=== PATIENT | female | born 1990 | race Two or more races ===

== ENCOUNTER 2018-06-22 21:55 | Emergency (ER) | payer MEDICAID ==
[2018-06-22 23:27] LABS: ABSOLUTE EOSINOPHILS # (AUTO) 0.1 10^3/uL (0.0-0.6); ABSOLUTE LYMPHOCYTES (AUTO) 2.3 10^3/uL (0.5-4.7); ABSOLUTE MONOCYTES (AUTO) 0.6 10^3/uL (0.1-1.4); ABSOLUTE NEUT (AUTO) 7.6 10^3/uL (1.7-8.2); BASOPHILS % (AUTO) 0.3 % (0-2); EOSINOPHILS % (AUTO) 0.6 % (0-6); HEMATOCRIT 32.7 % (36.0-47.0); HEMOGLOBIN 11.3 g/dL (12.0-15.5); LYMPHOCYTES % (AUTO) 21.3 % (13-45); MEAN CORPUSCULAR HEMOGLOBIN 30.4 pg (27.0-33.4); MEAN CORPUSCULAR HGB CONC 34.7 g/dL (32.0-36.0); MEAN CORPUSCULAR VOLUME 88 fl (80-97); MONOCYTES % (AUTO) 6.1 % (3-13); PLATELET COUNT 216 10^3/uL (150-450); RED BLOOD COUNT 3.73 10^6/uL (3.72-5.28); RED CELL DISTRIBUTION WIDTH 15.3 % (11.5-14.0); SEGMENTED NEUTROPHILS % (AUTO) 71.7 % (42-78); TOTAL CELLS COUNTED % (AUTO) 100 %; WHITE BLOOD COUNT 10.6 10^3/uL (4.0-10.5)
[2018-06-22 23:34] LABS: APPEARANCE,URINE SLIGHTLY-CLOUDY; BILIRUBIN,URINE NEGATIVE (NEGATIVE); COLOR,URINE STRAW; GLUCOSE, URINE NEGATIVE (NEGATIVE); KETONES,URINE NEGATIVE (NEGATIVE); LEUKOCYTE ESTERASE,URINE TRACE (NEGATIVE); NITRITE,URINE NEGATIVE (NEGATIVE); PROTEIN,URINE NEGATIVE (NEGATIVE); URINE SPECIFIC GRAVITY 1.005; UROBILINOGEN,URINE NEGATIVE mg/dL (<2.0)
[2018-06-22 23:44] LABS: ALANINE AMINOTRANSFERASE 16 U/L (9-52); ALBUMIN 3.4 g/dL (3.5-5.0); ALKALINE PHOSPHATASE 56 U/L (38-126); ANION GAP 10 (5-19); ASPARTATE AMINO TRANSFERASE 17 U/L (14-36); BILIRUBIN,TOTAL 0.2 mg/dL (0.2-1.3); BLOOD UREA NITROGEN 5 mg/dL (7-20); CALCIUM 9.2 mg/dL (8.4-10.2); CARBON DIOXIDE 24 mmol/L (22-30); CHLORIDE 104 mmol/L (98-107); GLUCOSE 80 mg/dL (75-110); POTASSIUM 4.1 mmol/L (3.6-5.0); SODIUM 138.3 mmol/L (137-145); TOTAL PROTEIN 6.4 g/dL (6.3-8.2)
--- NOTE | 2018-06-23 00:49 | RADIOLOGY REPORT (SQ) ---
PROCEDURE: XR CHEST 1 VIEW HISTORY: sob COMPARISON: None TECHNIQUE: The study was done on 06/23/2018 at 12:34 AM Single projection of the chest was done. FINDINGS: The lung doty are well inflated . There are no discrete airspace infiltrates, pneumothoraces or pleural effusions. The pulmonary vascularity is normal. The cardiomediastinal silhouette is unremarkable for patient's age and sex. IMPRESSION: There is no acute pleural-parenchymal process seen in the imaged lung doty. Location of Interpretation: Teleradiology
--- NOTE | 2018-06-23 01:33 | ER Document Report ---
ED General - General Chief Complaint: Weakness Stated Complaint: GENERALIZED WEAKNESS Time Seen by Provider: 06/22/18 22:29 Notes: Patient is a 28-year-old female currently 21 weeks who presents with multiple complaints. She states for the past several days she has felt fatigued , intermittently lightheaded, states she feels that she could possibly pass out. She notes that she intimately feels like she is unable to catch her breath but currently denies that symptom. She denies any shortness of breath. She states sometimes her lips feel numb or tingly. Denies headache, neck pain, focal weakness or numbness. No loss of consciousness. No history of DVT or pulmonary embolus. No pleuritic pain. No history of coronary artery disease. She has not seen her ROLL TUBE SETTER regarding these concerns. TRAVEL OUTSIDE OF THE [place] IN LAST 30 DAYS: No Past Medical History - General Information source: Patient - Social History Smoking Status: Never Smoker Frequency of alcohol use: None Drug Abuse: None Lives with: Spouse/Significant other Family History: Reviewed & Not Pertinent Patient has suicidal ideation: No Patient has homicidal ideation: No Renal/ Medical History: Denies: Hx Peritoneal Dialysis Review of Systems - Review of Systems Notes: Constitutional: Negative for fever. HENT: Negative for sore throat. Eyes: Negative for visual changes. Cardiovascular: Negative for chest pain. Positive for lightheadedness Respiratory: Positive for intermittent shortness of breath Gastrointestinal: Negative for abdominal pain, vomiting or diarrhea. Genitourinary: Negative for dysuria. Musculoskeletal: Negative for back pain. Skin: Negative for rash. Neurological: Negative for headaches, weakness or numbness. 10 point ROS negative except as marked above and in HPI. Physical Exam - Vital signs Vitals: Temp Pulse Resp BP Pulse Ox 99.1 F 78 16 110/60 100 06/22/18 22:00 06/22/18 22:00 06/22/18 22:00 06/22/18 22:00 06/22/18 22:00 Interpretation: Normal Notes: PHYSICAL EXAMINATION: GENERAL: Well-appearing, well-nourished and in no acute distress. HEAD: Atraumatic, normocephalic. EYES: Pupils equal round and reactive to light, extraocular movements intact, sclera anicteric, conjunctiva are normal. ENT: nares patent, oropharynx clear without exudates. Moist mucous membranes. NECK: Normal range of motion, supple without lymphadenopathy LUNGS: Breath sounds clear to auscultation bilaterally and equal. No wheezes rales or rhonchi. HEART: Regular rate and rhythm without murmurs ABDOMEN: Soft, gravid uterus, nontender, normoactive bowel sounds. No guarding , no rebound. No masses appreciated. EXTREMITIES: Normal range of motion, no pitting or edema. No cyanosis. NEUROLOGICAL: No focal neurological deficits. Moves all extremities spontaneously and on command. PSYCH: Normal mood, normal affect. SKIN: Warm, Dry, normal turgor, no rashes or lesions noted. Course - Re-evaluation Re-evalutation: 06/23/18 01:31 Patient presents with multiple vague complaints that did not appear to be concerning for any acute life-threatening pathology. Vitals are within normal limits at triage and at time of discharge. Physical examination is unremarkable. Patient has tolerated oral intake without difficulty. Patient was not noted to be in distress at any point during their ER visit. At this time, based on the reassuring evaluation, I do not suspect an acute IA, pulmonary embolus, aortic dissection, acute intra-abdominal pathology, stroke, or sepsis. Active movement on exam. Do not suspect related pathology. Will discharge with return precautions and follow-up recommendations. Verbal discharge instructions given a the bedside and opportunity for questions given. Medication warnings reviewed. Patient is in agreement with this plan and has verbalized understanding of return precautions and the need for primary care follow-up in the next 24-72 hours. - Vital Signs Vital signs: Temp Pulse Resp BP Pulse Ox 98.2 F 73 20 107/67 100 06/23/18 01:50 06/23/18 01:50 06/23/18 01:50 06/23/18 01:50 06/23/18 01:50 - Laboratory Result Diagrams: 06/22/18 23:13 06/22/18 23:13 Laboratory results interpreted by me: 06/22/18 06/22/18 06/22/18 23:13 23:13 23:13 WBC 10.6 H Hgb 11.3 L Hct 32.7 L RDW 15.3 H BUN 5 L Albumin 3.4 L Ur Leukocyte Esterase TRACE H - Diagnostic Test Radiology reviewed: Image reviewed, Reports reviewed Radiology results interpreted by me: 06/23/18 01:32 Chest x-ray: No acute infiltrate or pneumothorax Discharge - Discharge Clinical Impression: Second trimester , Lightheadedness Fatigue Qualifiers: Fatigue type: unspecified Qualified Code(s): R53.83 - Other fatigue Condition: Good Disposition: HOME, SELF-CARE Additional Instructions: Your labs and x-ray are normal. The exact cause of your symptoms is uncertain but does not appear to be from any life-threatening cause. Some of your symptoms could be related to your or anxiety. Please return to the emergency room immediately if you experience any concerning symptoms including high fevers, severe headache, chest pain, difficulty breathing, abdominal pain, slurred speech, numbness or weakness in your arms or legs, or any other symptom that concerns you. Referrals: LIAN ROSALES MD [Primary Care Provider] - Follow up as needed
[2018-06-23 02:01] VITALS: BP 107/67
== END 2018-06-23 01:51 | disposition home or self-care (01) ==
LOC: ER 21:55
DX: O26.92 Pregnancy related conditions, unspecified, second trimester (principal); R53.1 Weakness; R53.83 Other fatigue
CPT/HCPCS: 36415; 71045; 80053; 81001; 84484; 85025; 99284

== ENCOUNTER 2018-10-25 06:26 | Inpatient (IN) | payer MEDICAID ==
[2018-10-25] MEDS ORDERED: MISOPROSTOL 0.2 MG TABLET ONE (06:39)
[2018-10-25] MEDS ORDERED: OXYTOCIN/NORMAL SALINE 20 UNIT/1,000 ML RTUINJ ONE (06:39)
[2018-10-25] MEDS ORDERED: OXYTOCIN 10 UNIT/ML VIAL ONE (06:39)
[2018-10-25] MEDS ORDERED: LIDOCAINE 1% INJ-PF (10 MG/ML) 30 ML SDV ONE (06:39)
[2018-10-25] MEDS ORDERED: RINGERS SOLUTION,LACTATED 1,000 ML IV ONE (06:44)
[2018-10-25] MEDS ORDERED: RINGERS SOLUTION,LACTATED 1,000 ML IV PRN (06:44)
--- NOTE | 2018-10-25 07:02 | Admission Physical ---
Datetime Report Generated by CPN: 10/25/2018 07:02 CURRENT ADMISSION Chief Complaint: Uterine Contractions Indication for Induction: Not Applicable Admit Impression : Term, Intrauterine ; Active Labor Admit Plan: Admit to Unit; Initiate Labor Protocol ALLERGIES Medication Allergies: No Latex: No Latex Allergies OBSTETRICAL HISTORY EDC: 11/05/2018 00:00 : 4 Para: 2 PHYSICAL EXAM General: Normal HEENT: Normal Neurologic: Normal Thyroid: Deferred Heart: Normal Lungs: Normal Breast: Deferred Back: Normal Abdomen: Normal Genitourinary Exam: Normal Extremities: Normal DTRs: Normal Pelvic Type: Adequate Vital Signs: Reviewed VAGINAL EXAM Dilatation: 7 Effacement: 100 Station: bb Contraction Comments: q 2-3 MEMBRANES Membranes: Intact FETUS A EGA: 38.3 Monitoring: External US FHR- Baseline: 125 Variability: Moderate 6-25bpm Accelerations: 15X15 Decelerations: None FHR Category: Category I Presentation: Breech Admit Comment: 28yo at 38+3ega presents with regular uterine ctx since last night. pt thinks she may have broken her water - however bulging bag noted. GBS negative. Hep C missing on initial check of records so re-ordered while lab here. found in records later and negative. Pt kazakh speaking and BETTINA obtained for translation. Chronic anemia. ASCUS with HRHPV pap - needs colpo pp. Admit to Labor and delivery. Anticipate . PLANS FOR LABOR AND DELIVERY Feeding Preference: Both Benefit of Breast Feed Discussed: Yes INFORMED CONSENT Informed Consent Obtained: Vaginal Delivery; Risks, Benefits and Alternatives Discussed Signature: with User ID: [email or web address]
[2018-10-25] MEDS ORDERED: EPHEDRINE SULFATE INJ 50 MG/1 ML AMPULE ONE (07:13)
[2018-10-25] MEDS ORDERED: FENTANYL/BUPIVACAINE/NS/PF 0 MCG/0 ML RTUINJ EPI ONE (07:14)
[2018-10-25] MEDS ORDERED: LIDOCAINE 1.5%/EPINEPHRINE INJ-PF 30 ML SDV ONE (07:14)
[2018-10-25] MEDS ORDERED: BUPIVACAINE HCL 0.25 % INJ/PF (2.5 MG/1 ML) 30 ML VIAL ONE (07:14)
[2018-10-25 07:16] LABS: ABSOLUTE BASOPHILS # (AUTO) 0.1 10^3/uL (0.0-0.2); ABSOLUTE EOSINOPHILS # (AUTO) 0.1 10^3/uL (0.0-0.6); ABSOLUTE LYMPHOCYTES (AUTO) 2.1 10^3/uL (0.5-4.7); ABSOLUTE MONOCYTES (AUTO) 0.7 10^3/uL (0.1-1.4); ABSOLUTE NEUT (AUTO) 7.2 10^3/uL (1.7-8.2); BASOPHILS % (AUTO) 0.6 % (0-2); EOSINOPHILS % (AUTO) 0.6 % (0-6); HEMOGLOBIN 12.2 g/dL (12.0-15.5); LYMPHOCYTES % (AUTO) 20.9 % (13-45); MEAN CORPUSCULAR HEMOGLOBIN 28.3 pg (27.0-33.4); MEAN CORPUSCULAR HGB CONC 33.9 g/dL (32.0-36.0); MEAN CORPUSCULAR VOLUME 84 fl (80-97); MONOCYTES % (AUTO) 6.9 % (3-13); PLATELET COUNT 209 10^3/uL (150-450); RED BLOOD COUNT 4.31 10^6/uL (3.72-5.28); RED CELL DISTRIBUTION WIDTH 21.2 % (11.5-14.0); TOTAL CELLS COUNTED % (AUTO) 100 %; WHITE BLOOD COUNT 10.1 10^3/uL (4.0-10.5)
[2018-10-25] MEDS ORDERED: PSEUDOEPHEDRINE HCL 30 MG TABLET PO PRN (07:32)
[2018-10-25] MEDS ORDERED: GLYCERIN/WITCH HAZEL LEAF 1 EACH MED..PAD TP PRN (07:32)
[2018-10-25] MEDS ORDERED: MEASLES,MUMPS&RUBELLA VACC/PF 0.5 ML VIAL SUBCUT PRN (07:32)
[2018-10-25] MEDS ORDERED: BENZOCAINE/MENTHOL AEROSOL SPRAY 56 ML TOP PRN (07:32)
[2018-10-25] MEDS ORDERED: NA PHOS,M-B/NA PHOS,DI-BA (ADULT) 133 ML ENEMA PR PRN (07:32)
[2018-10-25] MEDS ORDERED: PROMETHAZINE HCL 25 MG TABLET PO PRN (07:32)
[2018-10-25] MEDS ORDERED: DIBUCAINE 1% OINTMENT 28 GM TP PRN (07:32)
[2018-10-25] MEDS ORDERED: DIPH/PERTUSS(ACELL)/TETANUS VAC/PF 0.5 ML SYR (>=10YO) IM PRN (07:32)
[2018-10-25] MEDS ORDERED: PROMETHAZINE HCL INJ 25 MG/1 ML VIAL IV PRN (07:32)
[2018-10-25] MEDS ORDERED: ACETAMINOPHEN WITH CODEINE #3 TABLET PO PRN (07:32)
[2018-10-25] MEDS ORDERED: MAGNESIUM HYDROXIDE SUSP 30 ML UDCUP PO PRN (07:32)
[2018-10-25] MEDS ORDERED: ZOLPIDEM TARTRATE 5 MG TABLET PO PRN (07:32)
[2018-10-25] MEDS ORDERED: PROMETHAZINE HCL 25 MG SUPP.RECT PR PRN (07:32)
[2018-10-25] MEDS ORDERED: ACETAMINOPHEN 650 MG SUPP.RECT PR PRN (07:32)
[2018-10-25] MEDS ORDERED: OXYTOCIN/NORMAL SALINE 20 UNIT/1,000 ML RTUINJ IV PRN (07:32)
[2018-10-25] MEDS ORDERED: DIPHENHYDRAMINE HCL 25 MG CAPSULE PO PRN (07:32)
[2018-10-25] MEDS ORDERED: ACETAMINOPHEN WITH CODEINE #3 TABLET ONE (07:35)
[2018-10-25] MEDS ORDERED: IBUPROFEN 800 MG TABLET ONE (07:35)
--- NOTE | 2018-10-25 07:41 | Warning Signs in Babies ---
VOD Warning Signs Datetime Report Generated by [facility]: 10/25/2018 07:41 VOD#608 -Warning Signs in Babies: Needs to be viewed. (10/25/2018 06:32:Luz Dias RN)
[2018-10-25] MEDS: ACETAMINOPHEN WITH CODEINE #3 TABLET PO PRN (07:57)
--- NOTE | 2018-10-25 08:51 | Delivery Summary ---
Del Sum A-C Datetime Report Generated by CPN: 10/25/2018 08:51 DELIVERY PERSONNEL DELIVERY PERSONNEL: [id number] Delivery Doctor:: Gladys Charlton MD Labor and Delivery Nurse:: Karina Tom RNpencil maker Nurse:: Luz Hodge RN Nursery Nurse:: Rachael Gaxiola RN Supervisory Civil Engineer/CHRONOMETER ASSEMBLER: Shobha Lewis, BOOT TURNER MATERNAL INFORMATION Delivery Anesthesia: None Medications After Delivery: Pitocin Drip 20 Units/1000ml NSS Maternal Complications: Precipitous Labor (<3hrs) Provider Comments: VMI delivered in GURPREET presentation. No nuchal cord. Shoulders and body delivered without difficulty. Cord doubly clamped and cut and to maternal abdomen for NRP. Placenta delivered intact spontaneously. FF at U. Good hemostasis. NO perineal lacerations. Mother and baby stable upon provider leaving the room. LABOR SUMMARY EDC: 11/05/2018 00:00 No. Babies in Womb: 1 Attempted: No Labor Anesthesia: None LABOR INFORMATION Reason for Induction: Not Applicable Onset of Labor: 10/25/2018 23:00 Complete Dilatation: 10/25/2018 07:21 Oxytocin: N/A Group B Beta Strep: negative Antibiotics # of Doses: 0 Steroids Given: None Reason Steroids Not Administered: Not Applicable MEMBRANES Membranes Rupture Method: Artificial Rupture of Membranes: 10/25/2018 07:24 Length of Rupture (hr): 0.05 Amniotic Fluid Color: Clear Amniotic Fluid Amount: Small Amniotic Fluid Odor: Normal STAGES OF LABOR Stage 1 hr: -15 Stage 1 min: -39 Stage 2 hr: 0 Stage 2 min: 6 Stage 3 hr: 0 Stage 3 min: 2 Total Time in Labor hr: -15 Total Time in Labor min: -31 VAGINAL DELIVERY Episiotomy: None Laceration #1: None Laceration Extension #1: N/A Laceration Repair: Not Applicable Sponge Count Correct: Yes Sharps Count Correct: Yes CSECTION DELIVERY Primary Indication: N/A Secondary Indication: N/A CSection Incidence: N/A Labor: N/A Elective: N/A CSection Incision: N/A BABY A INFORMATION Delivery Date/Time: 10/25/2018 07:27 Method of Delivery: Vaginal Born in Route : No : N/A Forceps: N/A Vacuum Extraction: N/A Shoulder Dystocia : No PRESENTATION/POSITION BABY A Presentation: Cephalic Cephalic Presentation: Vertex Vertex Position: Left Occipital Anterior Breech Presentation: N/A PLACENTA INFORMATION BABY A Placenta Delivery Time : 10/25/2018 07:29 Placenta Method of Delivery: Spontaneous Placenta Status: Delivered SCORES BABY A Heart Rate 1 min: >100 bpm Resp Effort 1 min: Slow, Irregular Reflex Irritability 1 min: Cough or Sneeze or Pulls Away Muscle Tone 1 min: Active Motion Color 1 min: Body [place], Extremities Blue Resuscitation Effort 1 min: N/A SCORE 1 MIN: 8 Heart Rate 5 min: >100 bpm Resp Effort 5 min: Good Cry Reflex Irritability 5 min: Cough or Sneeze or Pulls Away Muscle Tone 5 min: Active Motion Color 5 min: Body [place], Extremities Blue SCORE 5 MIN: 9 INFORMATION BABY A Gestational Age at Delivery: 38.3 Gestational Status: Early Term- 37- 38.6 Weeks Outcome : Liveborn Condition : Stable Sex: Male IDENTIFICATION BABY A Verification Date/Time: 10/25/2018 08:09 ID Band Number: [id number] Mother's Name Verified: Yes RN Verifying Infant: CSEDGWICK, RN/ BL ROULUND, RN WEIGHT/LENGTH BABY A Birthweight (gm): 3253 Infant Weight (lb): 7 Infant Weight (oz): 3 Infant Length (in): 19.00 Infant Length (cm): 48.26 CORD INFORMATION BABY A No. Cord Vessels: 3 Nuchal Cord : N/A Cord Blood Taken: Yes-For Storage (Mom's Blood type +) Suction: None ASSESSMENT BABY A Complications: None Physical Findings at Delivery: Within Normal Limits Respirations: Appears Normal Skin to Skin: Yes Skin to Skin Time (min): 60 Slab Miller Operator/ALS Called : No Infant Care By: Rachael Gaxiola, LINNETTE Transferred To: Remains with Mother BABY B INFORMATION : N/A SIGNATURES Signature: with User ID: [email or web address]
--- NOTE | 2018-10-25 08:52 | Delivery Summary ---
Del Sum A-C Datetime Report Generated by CPN: 10/25/2018 08:52 DELIVERY PERSONNEL DELIVERY PERSONNEL: [id number] Delivery Doctor:: Gladys Charlton MD Labor and Delivery Nurse:: Karina Tom RNmechanical service specialist Nurse:: Luz Hodge RN Nursery Nurse:: Rachael Gaxiola RN Sloop Captain/PUBLIC RELATIONS ASSOCIATE: Shobha Lewis, DJANGO DEVELOPER MATERNAL INFORMATION Delivery Anesthesia: None Medications After Delivery: Pitocin Drip 20 Units/1000ml NSS Maternal Complications: Precipitous Labor (<3hrs) Provider Comments: VMI delivered in GURPREET presentation. No nuchal cord. Shoulders and body delivered without difficulty. Cord doubly clamped and cut and to maternal abdomen for NRP. Placenta delivered intact spontaneously. FF at U. Good hemostasis. NO perineal lacerations. Mother and baby stable upon provider leaving the room. LABOR SUMMARY EDC: 11/05/2018 00:00 No. Babies in Womb: 1 Attempted: No Labor Anesthesia: None LABOR INFORMATION Reason for Induction: Not Applicable Onset of Labor: 10/25/2018 23:00 Complete Dilatation: 10/25/2018 07:21 Oxytocin: N/A Group B Beta Strep: negative Antibiotics # of Doses: 0 Steroids Given: None Reason Steroids Not Administered: Not Applicable MEMBRANES Membranes Rupture Method: Artificial Rupture of Membranes: 10/25/2018 07:24 Length of Rupture (hr): 0.05 Amniotic Fluid Color: Clear Amniotic Fluid Amount: Small Amniotic Fluid Odor: Normal STAGES OF LABOR Stage 1 hr: -15 Stage 1 min: -39 Stage 2 hr: 0 Stage 2 min: 6 Stage 3 hr: 0 Stage 3 min: 2 Total Time in Labor hr: -15 Total Time in Labor min: -31 VAGINAL DELIVERY Episiotomy: None Laceration #1: None Laceration Extension #1: N/A Laceration Repair: Not Applicable Sponge Count Correct: Yes Sharps Count Correct: Yes CSECTION DELIVERY Primary Indication: N/A Secondary Indication: N/A CSection Incidence: N/A Labor: N/A Elective: N/A CSection Incision: N/A BABY A INFORMATION Delivery Date/Time: 10/25/2018 07:27 Method of Delivery: Vaginal Born in Route : No : N/A Forceps: N/A Vacuum Extraction: N/A Shoulder Dystocia : No PRESENTATION/POSITION BABY A Presentation: Cephalic Cephalic Presentation: Vertex Vertex Position: Left Occipital Anterior Breech Presentation: N/A PLACENTA INFORMATION BABY A Placenta Delivery Time : 10/25/2018 07:29 Placenta Method of Delivery: Spontaneous Placenta Status: Delivered SCORES BABY A Heart Rate 1 min: >100 bpm Resp Effort 1 min: Slow, Irregular Reflex Irritability 1 min: Cough or Sneeze or Pulls Away Muscle Tone 1 min: Active Motion Color 1 min: Body [place], Extremities Blue Resuscitation Effort 1 min: N/A SCORE 1 MIN: 8 Heart Rate 5 min: >100 bpm Resp Effort 5 min: Good Cry Reflex Irritability 5 min: Cough or Sneeze or Pulls Away Muscle Tone 5 min: Active Motion Color 5 min: Body [place], Extremities Blue SCORE 5 MIN: 9 INFORMATION BABY A Gestational Age at Delivery: 38.3 Gestational Status: Early Term- 37- 38.6 Weeks Outcome : Liveborn Condition : Stable Sex: Male IDENTIFICATION BABY A Verification Date/Time: 10/25/2018 08:09 ID Band Number: [id number] Mother's Name Verified: Yes RN Verifying Infant: CSEDGWICK, RN/ BL ROULUND, RN WEIGHT/LENGTH BABY A Birthweight (gm): 3253 Infant Weight (lb): 7 Infant Weight (oz): 3 Infant Length (in): 19.00 Infant Length (cm): 48.26 CORD INFORMATION BABY A No. Cord Vessels: 3 Nuchal Cord : N/A Cord Blood Taken: Yes-For Storage (Mom's Blood type +) Suction: None ASSESSMENT BABY A Complications: None Physical Findings at Delivery: Within Normal Limits Respirations: Appears Normal Skin to Skin: Yes Skin to Skin Time (min): 60 Candle Molder/ALS Called : No Infant Care By: Rachael Gaxiola, LINNETTE Transferred To: Remains with Mother BABY B INFORMATION : N/A SIGNATURES Signature: with User ID: [email or web address]
[2018-10-25 09:48] LABS: APPEARANCE,URINE CLEAR; BILIRUBIN,URINE NEGATIVE (NEGATIVE); GLUCOSE, URINE NEGATIVE (NEGATIVE); KETONES,URINE NEGATIVE (NEGATIVE); LEUKOCYTE ESTERASE,URINE NEGATIVE (NEGATIVE); NITRITE,URINE NEGATIVE (NEGATIVE); PROTEIN,URINE 100 mg/dL (NEGATIVE); URINE SPECIFIC GRAVITY 1.002; UROBILINOGEN,URINE NEGATIVE mg/dL (<2.0)
[2018-10-25 09:50] LABS: COLOR,URINE PINK
[2018-10-25 10:14] LABS: URINE AMPHETAMINES SCREEN NEGATIVE; URINE BARBITURATES SCREEN NEGATIVE; URINE BENZODIAZEPINES SCREEN NEGATIVE; URINE COCAINE SCREEN NEGATIVE; URINE MARIJUANA (THC) SCREEN NEGATIVE; URINE PHENCYCLIDINE SCREEN NEGATIVE
[2018-10-25 10:16] LABS: URINE METHADONE SCREEN NEGATIVE
[2018-10-25] MEDS: PRENATAL VITAMIN W DHA CAPSULE PO SCH (11:11)
[2018-10-25] MEDS: DOCUSATE SODIUM 100 MG CAPSULE PO SCH ×2 (11:11→17:19)
[2018-10-25] MEDS: FERROUS SULFATE 325 MG TABLET PO SCH ×2 (11:11→17:19)
[2018-10-25] MEDS: SENNOSIDES/DOCUSATE 8.6-50 MG 1 EACH TABLET PO SCH (11:11)
[2018-10-25] MEDS: FAMOTIDINE 20 MG TABLET PO SCH ×2 (11:11→21:40)
[2018-10-25] MEDS: IBUPROFEN 800 MG TABLET PO SCH ×2 (13:19→21:39)
[2018-10-26] MEDS: IBUPROFEN 800 MG TABLET PO SCH ×3 (05:31→21:13)
[2018-10-26 06:45] LABS: HEMATOCRIT 32.8 % (36.0-47.0); MEAN CORPUSCULAR HEMOGLOBIN 28.1 pg (27.0-33.4); MEAN CORPUSCULAR HGB CONC 33.5 g/dL (32.0-36.0); MEAN CORPUSCULAR VOLUME 84 fl (80-97); PLATELET COUNT 196 10^3/uL (150-450); RED CELL DISTRIBUTION WIDTH 21.3 % (11.5-14.0); WHITE BLOOD COUNT 11.2 10^3/uL (4.0-10.5)
[2018-10-26 08:44] LABS: HEPATITIS C VIRUS AB <0.1 s/co ratio (0.0-0.9)
--- NOTE | 2018-10-26 09:22 | PDOC PROGRESS REPORT ---
Subjective-OB Progress Note for:: 10/26/18 Physical Exam (OB) Vital Signs: Temp Pulse Resp BP Pulse Ox 98.1 F 67 18 114/69 97 10/26/18 07:25 10/26/18 07:25 10/26/18 07:25 10/26/18 07:25 10/26/18 07:25 Intake & Output 10/25/18 10/26/18 10/27/18 06:59 06:59 06:59 Intake Total 1000 Balance 1000 Weight 74.389 kg - Lochia Lochia Amount: Scant < 10 ml Lochia Color: Rubra/Red - Abdomen Description: Soft, Round Hernia Present: No Bowel Sounds: Normoactive Flatus Presence: Present Stool: No Fundal Description: Firm, Midline Fundal Height: u/u - u/2 Objective-Diagnostic Laboratory: 10/26/18 06:38 10/25/18 10/26/18 09:35 06:38 WBC 11.2 H RBC 3.90 Hgb 11.0 L Hct 32.8 L MCV 84 MCH 28.1 MCHC 33.5 RDW 21.3 H Plt Count 196 Urine Color PINK Urine Appearance CLEAR Urine pH 8.0 Ur Specific [place] 1.002 Urine Protein 100 H Urine Glucose (UA) NEGATIVE Urine Ketones NEGATIVE Urine Blood LARGE H Urine Nitrite NEGATIVE Ur Leukocyte Esterase NEGATIVE
[2018-10-26] MEDS: DOCUSATE SODIUM 100 MG CAPSULE PO SCH ×2 (10:24→17:29)
[2018-10-26] MEDS: SENNOSIDES/DOCUSATE 8.6-50 MG 1 EACH TABLET PO SCH (10:24)
[2018-10-26] MEDS: FERROUS SULFATE 325 MG TABLET PO SCH ×2 (10:24→17:29)
[2018-10-26] MEDS: PRENATAL VITAMIN W DHA CAPSULE PO SCH (10:24)
[2018-10-26] MEDS: FAMOTIDINE 20 MG TABLET PO SCH ×2 (10:24→21:13)
[2018-10-26] MEDS: ACETAMINOPHEN WITH CODEINE #3 TABLET PO PRN (23:50)
[2018-10-27] MEDS: IBUPROFEN 800 MG TABLET PO SCH (06:29)
[2018-10-27 07:41] VITALS: BP 103/56
--- NOTE | 2018-10-27 09:05 | PDOC DISCHARGE SUMMARY ---
Final Diagnosis Discharge Date: 10/27/18 - PP Day #2, doing well, no complaints. A+, rubella Immune, Breast and bottlefeeding. - Final Diagnosis (1) Normal course Is this a current diagnosis for this admission?: Yes (2) Active labor at term Is this a current diagnosis for this admission?: Yes (3) Precipitous delivery, delivered (current hospitalization) Is this a current diagnosis for this admission?: Yes (4) Vaginal delivery Is this a current diagnosis for this admission?: Yes Discharge Data - Discharge Medication Prescriptions: Ibuprofen [Motrin 800 mg Tablet] 800 mg PO Q8 #60 tablet Home Medications: Vits96/Iron Fum/Folic [ Tablet] 1 tab PO DAILY 10/25/18 Ibuprofen [Motrin 800 mg Tablet] 800 mg PO Q8 #60 tablet 10/27/18 Reason(s) for Admission: Onset of Labor Procedures: Ultrasound Intrapartum Procedure(s): Spontaneous Vaginal Delivery - Diagnosis Test Laboratory: Temp Pulse Resp BP Pulse Ox 97.8 F 58 L 16 103/56 L 100 10/27/18 07:19 10/27/18 07:19 10/27/18 07:19 10/27/18 07:19 10/27/18 07:19 10/25/18 10/25/18 10/26/18 06:56 09:35 06:38 RBC 4.31 3.90 Hgb 12.2 11.0 L Hct 36.0 32.8 L Urine Opiates Screen UNCONFIRMED POSITIVE - Discharge information/Instructions Discharge Activity: Activity As Tolerated, No Lifting Over 10 Pounds, Pelvic Rest Discharge Diet: As Tolerated, Regular Disposition: HOME, SELF-CARE Follow up with: [facility] in: 4, Weeks
[2018-10-27] MEDS: FERROUS SULFATE 325 MG TABLET PO SCH (10:52)
[2018-10-27] MEDS: FAMOTIDINE 20 MG TABLET PO SCH (10:52)
[2018-10-27] MEDS: DOCUSATE SODIUM 100 MG CAPSULE PO SCH (10:52)
[2018-10-27] MEDS: SENNOSIDES/DOCUSATE 8.6-50 MG 1 EACH TABLET PO SCH (10:52)
[2018-10-27] MEDS: PRENATAL VITAMIN W DHA CAPSULE PO SCH (10:52)
== END 2018-10-27 13:00 | disposition home or self-care (01) | DRG 807 ==
LOC: LC 06:26 → LR 06:44 → 2S 10:27
PROVIDERS: ADMIT Student in an Organized Health Care Education/Training Program; ATTEND Student in an Organized Health Care Education/Training Program
PROC: 10E0XZZ Delivery of Products of Conception, External Approach (ICD-10-PCS; principal; 2018-10-25)
PROC: 10907ZC Drainage of Amniotic Fluid, Therapeutic from Products of Conception, Via Natural or Artificial Opening (ICD-10-PCS; 2018-10-25)
PROC: 4A1HXCZ Monitoring of Products of Conception, Cardiac Rate, External Approach (ICD-10-PCS; 2018-10-25)
DX: O32.1XX0 Maternal care for breech presentation, not applicable or unspecified (principal); Z37.0 Single live birth; O62.3 Precipitate labor; Z3A.38 38 weeks gestation of pregnancy
CPT/HCPCS: 36415; 80307; 81005; 85025; 85027; 86592; 86803; 86804; 86850; 86900; 86901; J2590; J3010; J3490

== ENCOUNTER 2019-01-25 13:53 | Emergency (ER) | payer MEDICAID ==
--- NOTE | 2019-01-25 14:32 | ER Document Report ---
HPI - HPI Time Seen by Provider: 01/25/19 14:20 Pain Level: 4 Context: Patient is a 29-year-old female who presents emergency department with a chief complaint of sore throat. She has had her sore throat for the past 3 days. She also does have pain in her right ear. She also states that she has had a fever but has been taking Motrin. Her last dose of Motrin was at 7:00 this morning. Denies any past medical history. - CONSTITUTIONAL Constitutional: DENIES: Fever - EENT EENT: REPORTS: Sore Throat, Ear Pain - R - NEURO Neurology: DENIES: Headache, Weakness - CARDIOVASCULAR Cardiovascular: DENIES: Chest pain - RESPIRATORY Respiratory: DENIES: Trouble Breathing, Coughing - REPRODUCTIVE Reproductive: DENIES: : - MUSCULOSKELETAL Musculoskeletal: DENIES: Extremity pain - DERM Skin Color: Normal Skin Problems: None Past Medical History - Social History Smoking Status: Never Smoker Chew tobacco use (# tins/day): No Frequency of alcohol use: None Drug Abuse: None Family History: Reviewed & Not Pertinent Patient has suicidal ideation: No Patient has homicidal ideation: No Renal/ Medical History: Denies: Hx Peritoneal Dialysis Vertical Provider Document - CONSTITUTIONAL Agree With Documented VS: Yes Exam Limitations: No Limitations General Appearance: No Apparent Distress - INFECTION CONTROL TRAVEL OUTSIDE OF THE [place] IN LAST 30 DAYS: No - HEENT HEENT: Atraumatic, Normocephalic, PERRLA, Pharyngeal Exudate, Pharyngeal Tenderness, Pharyngeal Erythema. negative: Tympanic Membrane Red, Tympanic Membrane Bulging - NECK Neck: Normal Inspection, Supple, Lymphadenopathy-Right - RESPIRATORY Respiratory: Breath Sounds Normal, No Respiratory Distress - CARDIOVASCULAR Cardiovascular: Regular Rate, Regular Rhythm Pulses: Normal: Radial - MUSCULOSKELETAL/EXTREMETIES Musculoskeletal/Extremeties: FROM - NEURO Level of Consciousness: Awake, Alert, Appropriate Motor/Sensory: No Motor Deficit, No Sensory Deficit - DERM Integumentary: Warm, Dry, No Rash Course - Re-evaluation Re-evalutation: 01/25/19 15:25 Patient's rapid strep is positive at this time. She will be treated with penicillin IM and Decadron here in the emergency department. I have referred her out to Dr. Aguilar, as the patient does speak Wallisian. She does understand most [place]. Her was able to relay the information onto the patient. I do not suspect patient has a peritonsillar abscess, Corky's angina, or any other life-threatening etiology at this time. Verbal discharge instructions were given to the patient. They verbalized understanding. They are stable for discharge. - Vital Signs Vital signs: Temp Pulse Resp BP Pulse Ox 98.3 F 83 18 120/63 100 01/25/19 13:57 01/25/19 13:57 01/25/19 13:57 01/25/19 13:57 01/25/19 13:57 Discharge - Discharge Clinical Impression: Strep pharyngitis Condition: Stable Disposition: HOME, SELF-CARE Instructions: Strep Throat ([facility]) Additional Instructions: You have been diagnosed with strep throat based on a positive strep test. You have been treated with a dose of penicillin here in the emergency department and do not need any additional antibiotics. You have also been given a dose of steroids to help with your throat discomfort. Please continue to take ibuprofen 600 mg every 6 hours or Tylenol 1000 mg every 6 hours as needed for throat discomfort. You can also gargle with salt water. Continue to drink plenty of fluids. Follow-up with your primary care doctor in the next several days. Return if you become unable to swallow, have difficulty breathing, pass out, have persistent vomiting that prevents you from being able to tolerate fluids, or have any other symptoms that are concerning to you. Referrals: MAYRA AGUILAR MD [ACTIVE STAFF] - Follow up as needed Print Language: Wallisian
[2019-01-25] MEDS ORDERED: PENICILLIN G BENZATHINE 1.2 MILLION UNIT/2 ML DISP.SYRIN IM ONE (15:11)
[2019-01-25] MEDS ORDERED: DEXAMETHASONE SOD PHOS INJ 10 MG/1 ML VIAL IM ONE (15:12)
[2019-01-25 15:25] VITALS: BP 107/67
== END 2019-01-25 15:37 | disposition home or self-care (01) ==
LOC: ER 13:53
DX: J02.0 Streptococcal pharyngitis (principal); H92.01 Otalgia, right ear
CPT/HCPCS: 99283; 96372; 87880; J0561; J1100